=== PATIENT | male | born 1960 | race Hispanic/Latino ===

== ENCOUNTER 2018-02-06 12:28 | Inpatient (IN) | payer MEDICAID, OTHER ==
[2018-02-06 12:28] VITALS: BMI 23.7
[2018-02-06 13:46] LABS: BASO % 0.2 % (0.0-2.0); EOS # 0.4 K/uL (0.0-0.7); LYMPH % 34.4 % (20.0-40.0); MEAN CELL VOLUME 91.7 fL (80.0-94.0); MEAN CORPUSCULAR HEMOGLOBIN 31.7 pg (27.0-31.0); MEAN CORPUSCULAR HGB CONC 34.6 g/dL (33.0-37.0); MEAN PLATELET VOLUME 9.1 fL (7.2-11.7); MONO # 0.6 K/uL (0.0-0.8); MONO % 7.1 % (0.0-10.0); NEUT # 4.7 K/uL (1.8-7.0); NEUT % 53.3 % (50.0-75.0); NRBC % 0.1 % (0.0-2.0); RBC 4.4 Mil/uL (4.40-5.90); RED CELL DISTRIBUTION WIDTH 13.8 % (11.5-14.5); WHITE BLOOD COUNT 8.9 K/uL (4.8-10.8)
[2018-02-06 14:02] LABS: SQUAMOUS EPITHIAL < 1 /hpf (0-5); URINE BILIRUBIN NEGATIVE (NEGATIVE); URINE BLOOD NEGATIVE (NEGATIVE); URINE CLARITY Clear (Clear); URINE COLOR Yellow (YELLOW); URINE GLUCOSE (UA) NORMAL (Normal); URINE LEUKOCYTE ESTERASE NEG Leu/uL (Negative); URINE PROTEIN NEGATIVE (NEGATIVE); URINE UROBILINOGEN NORMAL mg/dL (0.2-1.0)
[2018-02-06 14:14] LABS: BARBITURATES, UR NEGATIVE (NEGATIVE); OPIATES, UR NEGATIVE (NEGATIVE); PHENCYCLIDINE, UR NEGATIVE (NEGATIVE)
[2018-02-06 14:16] LABS: BENZODIAZEPINES, UR POSITIVE (NEGATIVE)
[2018-02-06 14:16] LABS: ALB/GLOB RATIO 1.1 (1.0-2.1); ALBUMIN 3.8 g/dL (3.5-5.0); ALT/SGPT 28 U/L (21-72); AST/SGOT 24 U/L (17-59); BLOOD UREA NITROGEN 14 mg/dL (9-20); CALCIUM 8.1 mg/dl (8.6-10.4); GFR AFRICAN-AMERICAN > 60; GFR NON-AFRICAN AMERICAN > 60
--- NOTE | 2018-02-06 16:36 | C.PDOC ---
History Of Present Illness 57yo male, with history of depression and anxiety, presents to the ED for evaluation as he has been feeling increasing depressed and anxious. Patient states he goes to a methadone clinic and was advised by the clinic to stop taking xanax otherwise he will not be further treated with methadone. Patient states he is feeling suicidal with plan to take pills. He reports he has been anxious secondary to loss of his and mother in law within the past 6 months. He denies any hallucinations or homicidal ideation. He has no medical complaints. Time Seen by Provider: 02/06/18 13:15 Chief Complaint (Nursing): Psychiatric Evaluation History Per: Patient History/Exam Limitations: no limitations Current Symptoms Are (Timing): Still Present Associated Symptoms: Anxiety, Depression, Suicidal Thoughts, Suicidal Plan Past Medical History Reviewed: Historical Data, Nursing Documentation, Vital Signs Vital Signs: Last Vital Signs Temp 98 F 02/06/18 15:34 Pulse 78 02/06/18 15:34 Resp 18 02/06/18 15:34 BP 136/74 02/06/18 15:34 Pulse Ox 98 02/06/18 16:39 - Medical History PMH: Anxiety, Asthma, HTN, Seizures Denies: Depression, Diabetes, Hepatitis, HIV, Sexually Transmitted Disease Surgical History: No Surg Hx - [facility] Procedures CONTR CEREBR ARTERIOGRAM (01/05/06) IMMOBILIZ/WOUND ATTN NEC (03/08/02) INJECT/INFUSE NEC (06/17/15) MAGNETIC RESONANCE IMAGING OF BRAIN AND BRAIN STEM (01/05/06) Family History: States: No Known Family Hx - Social History Hx Tobacco Use: No Hx Alcohol Use: No Hx Substance Use: No - Immunization History Hx Tetanus Toxoid Vaccination: No Hx Influenza Vaccination: No Hx Pneumococcal Vaccination: No Review Of Systems Except As Marked, All Systems Reviewed And Found Negative. Constitutional: Negative for: Fever, Chills Cardiovascular: Negative for: Chest Pain Respiratory: Negative for: Shortness of Breath Gastrointestinal: Negative for: Abdominal Pain Psych: Positive for: Anxiety, Depression, Suicidal ideation. Negative for: Psychosis Physical Exam - Physical Exam Appears: Non-toxic Skin: Normal Color, Warm, Dry Head: Atraumatic, Normacephalic Eye(s): bilateral: Normal Inspection, PERRL, EOMI Oral Mucosa: Moist Neck: Normal ROM, Supple Chest: Symmetrical Cardiovascular: Rhythm Regular Respiratory: Normal Breath Sounds, No Wheezing Gastrointestinal/Abdominal: Normal Exam, Soft, No Tenderness Back: Normal Inspection Extremity: Normal ROM, No Deformity Neurological/Psych: Oriented x3 ED Course And Treatment - Laboratory Results Result Diagrams: 02/06/18 13:41 02/06/18 13:41 O2 Sat by Pulse Oximetry: 98 (RA) Pulse Ox Interpretation: Normal Medical Decision Making Medical Decision Making: Impression: Anxiety, depression Plan: -- Labs -- Crisis evaluation Progress: Case discussed with milk house worker who evaluated patient and plan for admission. Labs reviewed and within normal limits. Patient medically cleared for admission. Disposition - Disposition Disposition: HOSPITALIZED Disposition Time: 14:30 Condition: STABLE - Clinical Impression Clinical Impression: Moderate major depression, single episode - Scribe Statement The provider has reviewed the documentation as recorded by the Scribe (Kori Jasso) Provider Attestation: All medical record entries made by the Scribe were at my direction and personally dictated by me. I have reviewed the chart and agree that the record accurately reflects my personal performance of the history, physical exam, medical decision making, and the department course for this patient. I have also personally directed, reviewed, and agree with the discharge instructions and disposition.
--- NOTE | 2018-02-06 16:56 | PCM.BM ---
<Francisco Neal - Last Filed: 02/06/18 16:53> Treatment Plan Problems - Problems identified on initial assessmt Substance abuse Date Initiated: 02/06/18 Time Initiated: 16:54 Assessment reference: NA Status: Active Depression Date Initiated: 02/06/18 Time Initiated: 16:54 Assessment reference: NA Status: Active Treatment assets and liabiliti Patient Assests: cooperative, self-reliant, ADL independent, physically healthy , good support system, negotiates basic needs, cognitively intact Patient Liabilities: physical pain (Back and Hip pain), dietary restrictions ( Heart healthy), substance abuse (Herorin), medical problems (HTN, Asthma) - Milieu Protocol Maintain good personal hygiene: daily Encourage regular showers, every shift Remind patient to perform daily oral care, every shift Assist patient to perform ADL's Conduct patient checks and document Observation sheet: Q15 minutes (For Safety) Maintain personal safety: every shift Educate patient to report safety concerns to staff, every shift Monitor environment for contraband/sharps Medication safety: Monitor for expected outcome, potential side effects: every shift, Assess barriers to learning: every shift, Assess readiness for medication education: every shift <Micah Licona - Last Filed: 02/08/18 11:32> - Diagnosis (1) Moderate major depression, single episode Status: Acute Interventions: 02/08/18 11:33 * Assess/adjust medications daily and /or as needed * See patient on an individual basis 7x/week to assess symptoms of depression * Monitor for side effects & effectiveness of medications * (2) Sedative, hypnotic or anxiolytic use disorder, severe, dependence Status: Acute Interventions: 02/08/18 11:33 * Assess 7x/week regarding severity of withdrawal * Educate regarding risks, benefits, side effects and alternatives of medications * Use Motivational Interviewing for abstinence * Use CBT for relapse prevention * Medication management for withdrawal symptoms * Encourage medication assisted treatment * <Nat Duncan - Last Filed: 02/08/18 13:52> Family Contact Family involvement: Famliy/SO not involved - Goals for Treatment Patient goals for treatment: "I want to go back to methadone program." Discharge/Continuing Care - Education Needs Education Needs: Patient Medication, Patient Coping Skills - Discharge Discharge Criteria: Tolerates medication w/o severe side effects, No longer exhibiting s/s of withdrawal, Reduction of target symptoms Discharge to:: Home - Treatment Team Participation Discussed with Family/SO: No Was Patient/Family/SO present at Treatment Team Meeting: Yes
[2018-02-07] MEDS ORDERED: Aluminum Hydroxide/Magnesium Hydroxide Susp (30 mL) PO PRN (00:12)
[2018-02-07 06:49] VITALS: O2SAT 100
--- NOTE | 2018-02-07 10:15 | PCM.PSYCH ---
Initial Psychiatric Evaluation - Initial Psychiatric Evaluation Type of Admission: Voluntary Legal Status: Capacity Chief Complaint (in patient's own words): I was feeling depressed.' History of Present Illness and Precipitating Events: Pt is a 57yo male presenting to [facility] seeking an alternative anxiety medication to Xanax and reporting some S/I. Pt reports h/o opioid use disorder and reports that he receives 120mg of Methadone daily from [facility] in [place], [place] (last received 02/05/18). Pt says he started receiving methadone approximately seven months ago. Prior to receiving methadone, pt reports he was using heroin daily since 1995. Pt says he recently began using heroin again because the methadone clinic is threatening to kick him out due to his Xanax use. Pt is currently prescribed Xanax by his primary care physician, however; the methadone clinic wants him on an alternative anxiety medication and it has to be prescribed by a psychiatrist. Pt reports that he is using 2 bags of heroin daily, intranasal, last use was last week 01/30/18. Pt reports multiple inpatient admissions to detox units but can only recall a stay at [facility] 10 years ago and at [facility] a few years ago. Pt says he has some suicidal thoughts, no plan, because he lost his in March 2017 as well as his [id number]. Pt says he has hallucinations of his , he believes he sees her when he wakes up. Pt reports daily anxiety attacks, when he does not take his Xanax, as evidenced by palpitations and shakiness. Pt denies H/I. Pt denies abuse. Pt reports multiple arrests between [id number] for using drugs and shoplifting (pt unable to recall specific dates). Pt reports multiple incarcerations between [id number] (pt unable to recall specific dates). 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 Pt says he has asthma, high blood pressure and seizures ( pt is not aware of what types of seizures he has). Pt reports his current medication as Xanax 1mg 2x/day, methadone 120mg daily, pt cannot recall the names or dosage of his seizure or high blood pressure medication. He reports depressed mood, feelings of helplessness and poor sleep. He denies any current AVH or any paranoia. PMH Asthma Current Medications: Active Medications Generic Name Dose Route Start Last Admin Trade Name Freq PRN Reason Stop Dose Admin Acetaminophen 650 mg 02/07/18 00:12 Tylenol 325mg Tab PO Q4H PRN Fever greater than 101 F Al Hydrox/Mg Hydrox/Simethicone 30 ml 02/07/18 00:12 Maalox 30 Ml PO TID PRN Indigestion / Heartburn Clonidine HCl 0.1 mg 02/07/18 00:12 Catapres PO Q8 PRN COWS Score More or Equal to 5 Hydroxyzine HCl 25 mg 02/07/18 00:13 Atarax PO Q6 PRN Agitation Loperamide HCl 2 mg 02/07/18 00:12 Imodium PO Q8 PRN Diarrhea Lorazepam 1 mg 02/07/18 00:15 Ativan PO Q6 PRN Anxiety Ondansetron HCl 4 mg 02/07/18 00:12 Zofran Tab PO Q8 PRN Nausea/Vomiting Trazodone HCl 100 mg 02/06/18 21:00 Desyrel PO HS PRN Insomnia Past Psychiatric History - Past Psychiatric History Previous Treatment History: Inpatient Pertinent Medical Hx (Current Medical&Sleep Prob, Allergies): Allergies Allergy/AdvReac Type Severity Reaction Status Date / Time No Known Allergies Allergy Verified 02/06/18 12:48 Methadone [Methadone HCl] 120 mg PO DAILY 06/17/15 ALPRAZolam [Xanax] 1 mg PO BID 02/06/18 Review of Systems - Review of Systems All systems: reviewed and no additional remarkable complaints except - Psychiatric Psychiatric: Anxiety, Irritability, Suicidal Ideation Mental Status Examination - Personal Presentation Personal Presentation: Looks stated age - Affect Affect: Broad, Depressed - Motor Activity Motor Activity: Psychomotor Agitation - Reliability in Providing Information Reliability in Providing Information: Fair - Speech Speech: Organized - Mood Mood: Depressed, Anxious - Formal Thought Process Formal Thought Process: Hallucinations - Obsessions/Compulsions Obsessions: No Compulsions: No - Cognitive Functions Orientation: Person, Place, Situation, Time Sensorium: Alert Attention/Concentration: Attentive Abstract Thinking: [place] Estimate of Intelligence: Below average Judgement: Imparied, as evidence by: Poor judgement, Imparied, as evidence by: Lack of insight into illness - Risk Risk: Suicidal, Withdrawal, Diminished functioning - Limitations Limitations: Living alone DSM 5 DX - DSM 5 DSM 5 Diagnosis: 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 Sedative/hypnotic withdrawal Opioid use severe in sustained remission on agonist therapy - Recommended/Plan of Treatment Treatment Recommendations and Plan of Treatment: Major depressive disorder recurrent severe with psychotic features -CBT -Psychoeducation -Supportive therapy, group therapy, individual therapy -Neurontin 100 mg by mouth 3 times a day -Trazodone 50 mg by mouth daily at bedtime Sedative/hypnotic use disorder severe -CBT -Psychoeducation -Supportive therapy, individual therapy -Use W[place] for abstinence Sedative/hypnotic withdrawal -CBT -Psychoeducation -Supportive therapy, individual therapy -Ativan PRN Opioid use severe in sustained remission on agonist therapy -Psychoeducation -Supportive therapy, individual therapy -Use W[place] for abstinence -Methadone maintenance 120 mg /Daily - Smoking Cessation Smoking Cessation Initiated: No
[2018-02-07] MEDS: Methadone 40 mg Tab PO SCH (10:29)
[2018-02-08] MEDS: Methadone 40 mg Tab PO SCH (09:48)
--- NOTE | 2018-02-08 11:37 | PCM.PYCHPN ---
Psychiatric Progress Note - Psychiatric Progress Note Patient Chief Complaint: I was feeling depressed.' Mental Status Examination - Cognitive Function Orientation: Person, Place, Situation, Time - Mood Mood: Depressed, Anxious - Affect Affect: Broad, Depressed - Formal Thought Process Formal Thought Process: Hallucinations - Homicidal Ideation Homicidal Ideation: No Goal/Treatment Plan - Goal/Treatment Plan Progress Toward Problem(s) and Goals/Treatment Plan: Major depressive disorder recurrent severe with psychotic features -CBT -Psychoeducation -Supportive therapy, group therapy, individual therapy -Neurontin 100 mg by mouth 3 times a day -Trazodone 50 mg by mouth daily at bedtime Sedative/hypnotic use disorder severe -CBT -Psychoeducation -Supportive therapy, individual therapy -Use [place] for abstinence Sedative/hypnotic withdrawal -CBT -Psychoeducation -Supportive therapy, individual therapy -Ativan PRN Opioid use severe in sustained remission on agonist therapy -Psychoeducation -Supportive therapy, individual therapy -Use SD for abstinence -Methadone maintenance 120 mg /Daily
--- NOTE | 2018-02-08 23:48 | PCM.PYCHPN ---
Psychiatric Progress Note - Psychiatric Progress Note Patient seen today, length of contact: 15 min Patient Chief Complaint: I m feeling little better.' Problems Identified/Issues Discussed: Patient seen and evaluated, chart reviewed and discussed with the nurse. Patient reports improvement in his mood and reports improvement in the anxiety symptoms. Patient reports withdrawal symptoms including headaches, cramps and sweating. He remained calm and cooperative. Patient is compliant with medications and denies any side effects. Symptoms are improving but need more time to stabilize. Support and psychoeducation given. Medication Change: No Medical Record Reviewed: Yes Mental Status Examination - Cognitive Function Orientation: Person, Place, Situation, Time Memory: Intact Attention: WNL Concentration: Poor Association: WNL Fund of Knowledge: Poor - Mood Mood: Depressed, Anxious - Affect Affect: Broad, Depressed - Speech Speech: Soft - Formal Thought Process Formal Thought Process: No Impairment - Suicidal Ideation Suicidal Ideation: No - Homicidal Ideation Homicidal Ideation: No Goal/Treatment Plan - Goal/Treatment Plan Need for Continued Stay: Severe depression anxiety, Severe functional impairment Progress Toward Problem(s) and Goals/Treatment Plan: Major depressive disorder recurrent severe with psychotic features -CBT -Psychoeducation -Supportive therapy, group therapy, individual therapy -Neurontin 100 mg by mouth 3 times a day -Trazodone 50 mg by mouth daily at bedtime Sedative/hypnotic use disorder severe -CBT -Psychoeducation -Supportive therapy, individual therapy -Use [place] for abstinence Sedative/hypnotic withdrawal -CBT -Psychoeducation -Supportive therapy, individual therapy -Ativan PRN Opioid use severe in sustained remission on agonist therapy -Psychoeducation -Supportive therapy, individual therapy -Use WV for abstinence -Methadone maintenance 120 mg /Daily - Smoking Cessation Smoking Cessation Initiated: No
[2018-02-09 06:23] VITALS: RESP 18
[2018-02-09] MEDS: Methadone 40 mg Tab PO SCH (09:12)
--- NOTE | 2018-02-10 01:27 | PCM.PYCHPN ---
Psychiatric Progress Note - Psychiatric Progress Note Patient seen today, length of contact: 15 min Problems Identified/Issues Discussed: Patient seen and evaluated, chart reviewed and discussed with the nurse. Patient reports improvement in his mood and reports improvement in the anxiety symptoms. Patient reports withdrawal symptoms including headaches, cramps and sweating. He remained calm and cooperative. Patient is compliant with medications and denies any side effects. Symptoms are improving but need more time to stabilize. Support and psychoeducation given. Medication Change: No Medical Record Reviewed: Yes Mental Status Examination - Cognitive Function Orientation: Person, Place, Situation, Time Memory: Intact Attention: WNL Concentration: Poor Association: WNL Fund of Knowledge: Poor - Mood Mood: Depressed, Anxious - Affect Affect: Broad, Depressed - Speech Speech: Soft - Formal Thought Process Formal Thought Process: No Impairment - Suicidal Ideation Suicidal Ideation: No - Homicidal Ideation Homicidal Ideation: No Goal/Treatment Plan - Goal/Treatment Plan Need for Continued Stay: Severe depression anxiety, Severe functional impairment Progress Toward Problem(s) and Goals/Treatment Plan: Major depressive disorder recurrent severe with psychotic features -CBT -Psychoeducation -Supportive therapy, group therapy, individual therapy -Neurontin 100 mg by mouth 3 times a day -Trazodone 50 mg by mouth daily at bedtime Sedative/hypnotic use disorder severe -CBT -Psychoeducation -Supportive therapy, individual therapy -Use [place] for abstinence Sedative/hypnotic withdrawal -CBT -Psychoeducation -Supportive therapy, individual therapy -Ativan PRN Opioid use severe in sustained remission on agonist therapy -Psychoeducation -Supportive therapy, individual therapy -Use LA for abstinence -Methadone maintenance 120 mg /Daily
[2018-02-10 06:19] VITALS: BP 137/76; PULSE 60; TEMP 97.9
[2018-02-10] MEDS: Methadone 40 mg Tab PO SCH (09:42)
--- NOTE | 2018-02-10 10:04 | PCM.PYCHDC ---
Mental Status Examination - Mental Status Examination Orientation: Person, Place, Situation, Time Memory: Intact Mood: Neutral Affect: Constricted Speech: Soft Attention: WNL Concentration: WNL Association: WNL Fund of Knowledge: WNL Formal Thought Process: No Impairment Description of patient's judgement and insight: good, fair Psychotic Thoughts and Behaviors: denies any AVH Suicidal Ideation: No Current Homicidal Ideation?: No Discharge Summary - Discharge Note Reason for Hospitalization: Pt is a 57yo male presenting to [facility] seeking an alternative anxiety medication to Xanax and reporting some S/I. Pt reports h/o opioid use disorder and reports that he receives 120mg of Methadone daily from [facility] in [place], [place] (last received 02/05/18). Pt says he started receiving methadone approximately seven months ago. Prior to receiving methadone, pt reports he was using heroin daily since 1995. Pt says he recently began using heroin again because the methadone clinic is threatening to kick him out due to his Xanax use. Pt is currently prescribed Xanax by his primary care physician, however; the methadone clinic wants him on an alternative anxiety medication and it has to be prescribed by a psychiatrist. Pt reports that he is using 2 bags of heroin daily, intranasal, last use was last week 01/30/18. Pt reports multiple inpatient admissions to detox units but can only recall a stay at [facility] 10 years ago and at [facility] a few years ago. Pt says he has some suicidal thoughts, no plan, because he lost his in March 2017 as well as his [id number]. Pt says he has hallucinations of his , he believes he sees her when he wakes up. Pt reports daily anxiety attacks, when he does not take his Xanax, as evidenced by palpitations and shakiness. Pt denies H/I. Pt denies abuse. Pt reports multiple arrests between [id number] for using drugs and shoplifting (pt unable to recall specific dates). Pt reports multiple incarcerations between [id number] (pt unable to recall specific dates). 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 Pt says he has asthma, high blood pressure and seizures ( pt is not aware of what types of seizures he has). Pt reports his current medication as Xanax 1mg 2x/day, methadone 120mg daily, pt cannot recall the names or dosage of his seizure or high blood pressure medication. He reports depressed mood, feelings of helplessness and poor sleep. He denies any current AVH or any paranoia. Consultations:: List each consultation separately and include: 1. Reason for request. 2. Findings. 3. Follow-up Summary of Hospital Course include:: 1. Description of specific treatment plan utilized for patients during their course of treatmen. 2. Summarize the time- course for resolution of acute symptoms and/or regressed behaviors. 3. Describe issues identified and worked on during hospitalization. 4. Describe medication utilized. 5. Describe medical problems identified and treated. 6. Reassessment of suicide risk Summary of Hospital Course: During the course of his stay, patient (pt) started progressively improving and he no longer remained irritable, depressed, and suicidal. His mood and anxiety symptoms were improved and he started attending groups and meetings and started socializing. Patient denied any feelings of hopelessness, helplessness, and worthlessness, denied any problem with the sleep or appetite, denied suicidal ideation or homicidal ideation. Pt denied any auditory or visual hallucinations. He denied any withdrawal symptoms. Some changes were made in his current medications and patient was discharged on following medications. He tolerated these medications very well and denied any side effects. Pt is to return to [facility] in [place] for methadone maintenance. 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 Pt was educated and counseled about the risks of drinking and abusing drugs. Pt was educated and counseled to go to the ER or call 911 if pt develop suicidal ideation or homicidal ideation, worsening of symptoms or severe side effects of the meds. Prescriptions/Medication Reconciliation: Gabapentin [Neurontin] 100 mg PO BID #60 cap traZODone [Desyrel] 100 mg PO HS PRN #30 tab PRN Reason: Insomnia - Smoking Cessation Smoking Cessation Medication prescribed: No - Antipsychotic Medications Pt discharged on 2 or more routine antipsychotic medications: No
== END 2018-02-10 11:45 | disposition home or self-care (01) | DRG 430 ==
LOC: C.ER 12:28 → C.5E 15:08
PROVIDERS: ADMIT Psychiatry & Neurology Psychiatry; ATTEND Psychiatry & Neurology Psychiatry
PROC: HZ59ZZZ Individual Psychotherapy for Substance Abuse Treatment, Supportive (ICD-10-PCS; principal; 2018-02-06)
DX: F33.3 Major depressive disorder, recurrent, severe with psychotic symptoms (principal); R56.9 Unspecified convulsions; F13.239 Sedative, hypnotic or anxiolytic dependence with withdrawal, unspecified; F11.11 Opioid abuse, in remission; F41.9 Anxiety disorder, unspecified; I10 Essential (primary) hypertension; J45.909 Unspecified asthma, uncomplicated; R45.851 Suicidal ideations